=== PATIENT | female | born 1970 | race Caucasian/White ===

== ENCOUNTER 2019-12-16 11:55 | Emergency (ER) | payer BC ==
[2019-12-16 12:19] VITALS: BP 146/97
--- NOTE | 2019-12-16 12:21 | UC ---
Abdominal Pain Female HPI - HPI Summary HPI Summary: 49 yo female presents with left sided abdominal pain. She tells me that she has a hx of diverticulitis with perforation about 5 years ago. Since that time she will intermittently get constipated with LLQ pain. She will then adhere to a strict diet and drink juices and her symptoms will improve within 2-3 days. Today she tells me that about 4 days ago she developed constipation and LLQ mild dull aching pain. She has done her usual regimen, but pain has steadily increased. She had an episode of loose stools yesterday. She feels nauseous. Denies fever, chills, SOB, chest pain, vomiting, dysuria, flank pain, vaginal bleeding/discharge. - History of Current Complaint Chief Complaint: UCGI Stated Complaint: SIDE PAIN Time Seen by Provider: 12/16/19 12:20 Hx Obtained From: Patient Hx Last Menstrual Period: 06/07/16 Onset/Duration: Gradual Onset Severity Initially: Mild Severity Currently: Moderate Pain Intensity: 4 Pain Scale Used: 0-10 Numeric Allergies/Adverse Reactions: Allergies Allergy/AdvReac Type Severity Reaction Status Date / Time Sulfa (Sulfonamide Allergy Hives Verified 12/16/19 12:13 Antibiotics) Home Medications: Home Medications NK [No Home Medications Reported] 12/16/19 [History Confirmed 12/16/19] PMH/Surg Hx/FS Hx/Imm Hx - Additional Past Medical History Additional PMH: None - Surgical History Surgical History: Yes Surgery Procedure, Year, and Place: BIOPSY RIGHT BREAST - Family History Known Family History: Positive: Cardiac Disease, Hypertension, Diabetes - Social History Lives: With Family Alcohol Use: Occasionally Substance Use Type: None Smoking Status (MU): Light Every Day Tobacco Smoker Type: Cigarettes Amount Used/How Often: 1/4 PPD Length of Time of Smoking/Using Tobacco: 30+ years Have You Smoked in the Last Year: Yes Household Exposure Type: Cigarettes - Immunization History Most Recent Influenza Vaccination: NA Most Recent Tetanus Shot: Unknown Most Recent Pneumonia Vaccination: None Review of Systems All Other Systems Reviewed And Are Negative: No Constitutional: Positive: Negative Skin: Positive: Negative Respiratory: Positive: Negative Cardiovascular: Positive: Negative Gastrointestinal: Positive: Abdominal Pain, Nausea Genitourinary: Positive: Negative Neurological/Mental Status: Positive: Negative Psychological: Positive: Negative Physical Exam - Summary Physical Exam Summary: GENERAL: NAD. WDWN. No pain distress. SKIN: No rashes, sores, lesions, or open wounds. NECK: Supple. Nontender. No lymphadenopathy. CHEST: CTAB. No r/r/w. No accessory muscle use. Breathing comfortably and in no distress. CV: RRR. Pulses intact. Cap refill <2seconds ABDOMEN: Mild TTP LLQ and left abdomen. Soft. No distention or guarding. No CVA tenderness. Bowel sounds present NEURO: Alert. PSYCH: Age appropriate behavior. Triage Information Reviewed: Yes Vital Signs: Initial Vital Signs Temp 98.9 F 12/16/19 12:13 Pulse 98 12/16/19 12:13 Resp 16 12/16/19 12:13 BP 146/97 12/16/19 12:13 Pulse Ox 99 12/16/19 12:13 Laboratory Tests 12/16/19 12:38 POC Urine Color Yellow POC Urine Clarity Clear POC Urine pH 6.0 POC Ur Specif [place] <= 1.005 L POC Urine Protein Negative POC Ur Glucose (UA) Negative POC Urine Ketones Negative POC Urine Blood Trace-lysed POC Urine Nitrite Negative POC Urine Bilirubin Negative POC Urine Urobilinogen 0.2 POC U Leukocyte Esteras Trace A Vital Signs Reviewed: Yes Abd Pain Female Course/Dx - Course Course Of Treatment: UA as above. Given hx of diverticulitis and exam/symptoms today - recommend going to the ED for further evaluation. Pt was agreeable to this and will go there now - Differential Dx/Diagnosis Provider Diagnosis: LLQ pain Discharge ED - Sign-Out/Discharge Documenting (check all that apply): Patient Departure All imaging exams completed and their final reports reviewed: No Studies - Discharge Plan Condition: Stable Disposition: HOME-RECOMMEND TO ED Referrals: Luana Huerta MD [Primary Care Provider] - Additional Instructions: Please go to the ER for further evaluation of your abdominal pain and history of diverticulitis - Billing Disposition and Condition Condition: STABLE Disposition: Home-Recommend to ED
--- NOTE | 2019-12-17 14:56 | UC ---
- Progress Note Progress Note: Patient was seen, was to go to ER due to symptoms, no record of being seen at ER. Please call to see if she went to the ER. Urine + for bacteria, small amout, if patient having urinary symptoms will need ABX called in. NO treatment needed if asymptomatic. -Viri Garcia PAC Course/Dx - Diagnoses Provider Diagnoses: LLQ pain Discharge ED - Sign-Out/Discharge Documenting (check all that apply): Patient Departure All imaging exams completed and their final reports reviewed: No Studies - Discharge Plan Condition: Stable Disposition: HOME-RECOMMEND TO ED Referrals: Luana Huerta MD [Primary Care Provider] - Additional Instructions: Please go to the ER for further evaluation of your abdominal pain and history of diverticulitis - Billing Disposition and Condition Condition: STABLE Disposition: Home-Recommend to ED
== END 2019-12-16 12:47 | disposition home health service (06) ==
LOC: UCEAST 11:55
DX: R10.32 Left lower quadrant pain (principal); R11.0 Nausea; Z88.2 Allergy status to sulfonamides; F17.210 Nicotine dependence, cigarettes, uncomplicated; Z87.19 Personal history of other diseases of the digestive system
CPT/HCPCS: 81003; 87077; 87086; 99202; G0463